=== PATIENT | female | born 1995 | race Caucasian/White ===

== ENCOUNTER 2018-08-15 19:04 | Inpatient (IN) | payer OTHER ==
[~2018-08-15] VITALS: Ht 149.9 cm; Wt 68.0 kg
[2018-08-15] MEDS ORDERED: OBSTETRIX EC C1 EACH PO (22:06)
== END 2018-08-16 19:15 | disposition home or self-care (01) | DRG 833 ==
LOC: LDR 19:04
PROC: BY4FZZZ Ultrasonography of Third Trimester, Single Fetus (ICD-10-PCS; principal; 2018-08-15)
PROC: 4A1HXCZ Monitoring of Products of Conception, Cardiac Rate, External Approach (ICD-10-PCS; 2018-08-15)
DX: O47.1 False labor at or after 37 completed weeks of gestation (principal); O76 Abnormality in fetal heart rate and rhythm complicating labor and delivery; Z34.83 Encounter for supervision of other normal pregnancy, third trimester

== ENCOUNTER → 2018-08-19 | Outpatient (CLI) | payer OTHER ==
[~2018-08-19] MED LIST: OBSTETRIX EC C1 EACH PO
== END | disposition home or self-care (01) ==
LOC: NST 15:54
DX: Z34.83 Encounter for supervision of other normal pregnancy, third trimester (principal)

== ENCOUNTER 2018-08-28 06:41 | Inpatient (IN) | payer OTHER ==
[~2018-08-28] VITALS: Ht 149.9 cm; Wt 68.9 kg
== END 2018-08-30 14:42 | disposition home or self-care (01) | DRG 807 ==
LOC: LDR 06:41 → OB/GYN 19:20
PROC: 10E0XZZ Delivery of Products of Conception, External Approach (ICD-10-PCS; principal; 2018-08-28)
PROC: 0HQ9XZZ Repair Perineum Skin, External Approach (ICD-10-PCS; 2018-08-28)
PROC: 4A1HXCZ Monitoring of Products of Conception, Cardiac Rate, External Approach (ICD-10-PCS; 2018-08-28)
PROC: 4A033R1 Measurement of Arterial Saturation, Peripheral, Percutaneous Approach (ICD-10-PCS; 2018-08-28)
DX: O70.1 Second degree perineal laceration during delivery (principal); Z37.0 Single live birth; Z3A.39 39 weeks gestation of pregnancy